=== PATIENT | male | born 1985 | race Caucasian/White ===

== ENCOUNTER 2018-12-06 19:23 | Inpatient (IN) | payer OTHER, SELFPAY ==
[2018-12-06 19:24] VITALS: BP 143/82; PULSE 70; RESP 18; TEMP 36.8; O2SAT 97; BMI 29.0
[2018-12-06 21:07] VITALS: BP 138/74; PULSE 50; RESP 14; O2SAT 98
[2018-12-06] MEDS: 0.9% Normal Saline 1,000 ML 999 ML IV ×2 (21:09→23:16)
[2018-12-06 23:24] LABS: Absolute Lymphocyte Count 2.28 X10^3/ul (0.83-4.51); Absolute Neutrophil Count 6.9 X10^3/uL (2.0-7.7); Basophil# 0.02 X10^3/uL; Basophil% 0.2 % (0-1); Eosinophil# 0.11 X10^3/uL; Eosinophils% 1.1 % (0-5); Hematocrit 42.6 % (40-54); Hemoglobin 15.1 g/dl (13.0-16.5); Lymphocyte # 2.28 X10^3/ul (4.0); Lymphocyte % 22.8 % (19-41); Mean Corp Hgb Conc 35.4 g/gl (32-36); Mean Corpuscular Hgb 31.1 pg (27.0-32.0); Mean Corpuscular Volume 87.8 fL (80-94); Mean Platelet Vol. 10.4 fl (6.2-12.0); Monocyte# 0.68 X10^3/uL; Monocyte% 6.8 % (0-10); POSITIVE COUNT NO; POSITIVE DIFFERENTIAL NO; POSITIVE MORPHOLOGY NO; Platelet Count 170 K/mm3 (150-450); RBC Distribution Width CV 12.2 % (11.6-14.6); RBC Distribution Width SD 39.1 fl (35.1-43.9); Red Blood Count 4.85 M/mm3 (4.6-6.2)
[2018-12-06 23:27] LABS: CPK Total, Creatine Kinase 36825 U/L (39-308)
[2018-12-06 23:36] LABS: Anion Gap 11 (5-15); BUN 12 mg/dL (7-18); BUN/Creat Ratio 14.4 RATIO (10-20); Calcium,Total 8.8 mg/dL (8.5-10.1); Chloride 98 mmol/L (98-107); Creatinine, Serum 0.83 mg/dL (0.70-1.30); EST Glomerular Filtration Rate 111 mL/min (>60); Est Glom Filt Rate - Afr Amer 135 mL/min (>60); Glucose 101 mg/dL (74-106); Potassium 3.7 mmol/L (3.5-5.1); Sodium Level 132 mmol/L (136-145)
--- NOTE | 2018-12-06 23:52 | HP.PCM_ITS ---
Problem List (1) Rhabdomyolysis Status: Acute History of Present Illness Date of Admission: 12/06/18 Chief Complaint: sore hamstring muscles The patient is a 33 year old M with a significant history of previous rhabdomyolysis who presented with soreness of his bilateral hamstring muscles on the same day of presentation. Patient had a workout a day before his symptoms started. He reports bilateral posterior thigh soreness. Because previously he had rhabdomyolysis and his symptoms appeared consistent with his previous rhabdomyolysis he began to drink so much water. Because his symptoms persisted after drinking so much water he came to emergency department. At the Emergency department patient was found to have severely elevated CPK. He was initially started on saline and then IV fluid was switched to bicarbonate after CPK results came back to be severely elevated. Past Medical History Medical History: Medical History (Last Reviewed 12/07/18 @ 07:27 by Santiago Tellez MD) Rhabdomyolysis M62.82 Allergies No Known Allergies Allergy (Verified 12/06/18 19:25) Home Medications: Ambulatory Orders Medication Instructions Recorded No Known/Unobtainable [No Known 10/30/16 Home Medications] Surgical History: no surgical history Lives: Spouse/ Significant Other Smoking Status: Never smoker Alcohol: Occasional Review of Systems Constitutional: Denies: Chills, Fever, Weight Change HEENT: Denies: Head Aches, Sinus Congestion, Sinus Drainage Cardiovascular: Denies: Chest Pain, Palpitations Respiratory: Denies: Cough, Shortness of breath at rest, Sputum production Gastrointestinal: Denies: Abdominal Pain, Nausea, Vomiting Genitourinary: Denies: Dysuria Musculoskeletal: Reports: Muscle pain. Denies: Joint Pain, Joint Tenderness Skin: Denies: Rash, Wounds Neurological: Denies: Numbness, Tingling, Focal weakness Psychiatric: Denies: Anxiety, Depression, Homicidal Ideations, Suicidal Ideations Hematologic/ Lymphatic: Denies: Easy Bruising, Easy Bleeding VTE Information - Inpt Only VTE Present on Admission: No VTE Mechan Device Prophylaxis: None VTE Pharm Prophylaxis ordered?: No Reason prophylaxis not ordered:: Treatment Not Indicated - Low risk - Physical Exam General: Alert, Oriented x3, Cooperative HEENT: Atraumatic, PERRLA, EOMI, Normocephalic Neck: Supple, No JVD, Negative Carotid Bruits Lungs: Clear to auscultation, Normal air movement Cardiovascular: Regular rate, No murmurs Abdomen: Bowel Sounds Present, Soft, Non Tender Extremities: No edema, Capillary Refill Less than 3 Seconds Skin: No rashes, No breakdown Musculoskeletal: No Tenderness to Palpation of Joints or Extremities Neurological: Cranial nerves II-XII grossly intact Psych/Mental Status: Normal Affect, Appropriate Vital Signs Temp Pulse Resp BP Pulse Ox 98.2 F 50 L 14 138/74 H 98 12/06/18 19:24 12/06/18 21:07 12/06/18 21:07 12/06/18 21:07 12/06/18 21:07 Oxygen Delivery Method Room Air Weight: 81.8 kg Body Mass Index (BMI) 29.0 Laboratory Tests Past 24 Hrs 12/06/18 12/06/18 12/06/18 21:01 21:01 21:01 WBC 10.0 RBC 4.85 Hgb 15.1 Hct 42.6 MCV 87.8 MCH 31.1 MCHC 35.4 RDW 12.2 RDW Differential 39.1 Plt Count 170 MPV 10.4 Immature Gran % (Auto) 0.100 Neut % (Auto) 69.0 Lymph % (Auto) 22.8 [place] % (Auto) 6.8 Eos % (Auto) 1.1 Baso % (Auto) 0.2 Absolute Neuts (auto) 6.9 Absolute Lymphs (auto) 2.28 Sodium 132 L Potassium 3.7 Chloride 98 Carbon Dioxide 23.0 Anion Gap 11 BUN 12 Creatinine 0.83 Estim Creat Clear Calc 112.10 Est GFR (MDRD) Af Amer 135 Est GFR (MDRD) Non-Af 111 BUN/Creatinine Ratio 14.4 Glucose 101 Calcium 8.8 Total Creatine Kinase 24356 H Assessment/Plan All Active Problems (Last Reviewed 12/07/18 @ 02:11 by Santiago Tellez MD) Rhabdomyolysis (Acute) The patient is a 33 year old M with a significant history of previous rhabdomyolysis who presented with soreness of his bilateral hamstring muscles after working out and found to have severe elevation of CPK consistent with acute rhabdomyolysis. Acute rhabdomyolysis Patient received normal saline at the emergency department and bicarbonate infusion was started. Since per literature there may not be any additional benefit from using bicarbonate will switch back to normal saline infusion after current bag of bicarbonate has been completed. If with persisted elevated CPK consider trying bicarbonate again. Repeat CPK in a.m. Tylenol PRN for pain. DVT prophylaxis low risk; not indicated Code Visit OBSV E&M: 95044 Initial observation care L3
--- NOTE | 2018-12-06 23:58 | ED.VISSUMM ---
- ER Visit Summary Date of Service: 12/06/18 Chief Complaint: Muscle soreness History of Present Illness: The patient is a 33 M who presents the emergency department at a concern for rhabdomyolysis. 2017 the patient was admitted in October with CPK levels greater than 100,000. He states that he works out quite frequently and he states that he remembers the discomfort from rhabdo quite well. States he had similar feelings in his hamstrings when he woke this morning after yesterday's work-up. States he does not feel as bad as he did in the past. When he woke this morning he immediately began to drink a lot of fluids. He states his urine is pretty much clear. However he continues to have the discomfort in his hamstrings so he came to the emergency department. Physical Examination: Afebrile vital signs stable Gen: Well-nourished well-developed Head: Normocephalic atraumatic Eyes: Perrl EOMI ENT: TMs clear no rhinorrhea moist mucous membranes Neck: Supple no lymphadenopathy no JVD nontender CVS: Regular rate rhythm no murmurs normal S1-S2 Respiratory: No distress clear to auscultation bilaterally chest nontender Abdomen: Soft nontender nondistended normal bowel sounds no masses Back: Nontender Extremity: Nontender no edema Skin: Normal color no rash Neuro: alert orientated ?3 CN II-XII intact normal strength sensation Psych: Normal affect normal mood Test Results: CBC and BMP are normal. Normal creatinine. Total body CK is 36,825. Emergency Department Course and Treatment: Patient was treated initially with 2 L of IV fluids. Once a CPK level came back we changed to bicarbonate drip. He has been consistently urinating large volume. Our plan is admission. Impression: 1. Acute rhabdomyolysis This note was generated with [employer] dictation software. It may contain incorrect words, spelling, and punctuation that were not noted in review of the chart prior to signing ED Disposition - Plan for ED Patient: Referrals: Alem Cornell NP-C [Primary Care Provider] -
[2018-12-07 00:53] VITALS: BP 130/78; PULSE 88; RESP 18; O2SAT 97
[2018-12-07 01:18] VITALS: BMI 28.8; BMI 29.1
[2018-12-07 01:30] VITALS: BP 132/77; PULSE 46; RESP 16; TEMP 36.6; O2SAT 99
[2018-12-07] MEDS: 0.9% Normal Saline 1,000 ML 150 ML IV (05:42)
[2018-12-07 07:16] LABS: Anion Gap 3 (5-15); BUN 8 mg/dL (7-18); BUN/Creat Ratio 10.5 RATIO (10-20); CPK Total, Creatine Kinase 32629 U/L (39-308); Calcium,Total 8.1 mg/dL (8.5-10.1); Chloride 105 mmol/L (98-107); Creatinine, Serum 0.76 mg/dL (0.70-1.30); EST Glomerular Filtration Rate 123 mL/min (>60); Est Glom Filt Rate - Afr Amer 149 mL/min (>60); Estimated Creatinine Clearance 122.42 ml/min; Glucose 160 mg/dL (74-106); Potassium 3.6 mmol/L (3.5-5.1); Sodium Level 139 mmol/L (136-145)
[2018-12-07 07:30] VITALS: BP 136/83; PULSE 44; RESP 16; TEMP 36.7; O2SAT 100
[2018-12-07 08:00] VITALS: PULSE 44
--- NOTE | 2018-12-07 11:31 | PCM.PROGNOTE ---
Subjective: The patient is a 33-year-old male with a past medical history of severe rhabdomyolysis after a hard work out who presented to the Ed at [facility] on 12/06/2018 complaining of severe pain in his hamstrings bilaterally. He last exercised on 12/05/2018 and he exercised for approximately 1 Half Hour Doing Hill sprints. He stated he took frequent breaks. He is well trained and exercises regularly. He relates that he is always sore after any work out and that this has been going on since he was a child. He had been drinking large amounts of water to prevent kidney failure. He denies any dark urine. He denies any FH of metabolic disorders. He has never been tested for a metabolic myopathy. All lab was personally reviewed. Heart rate is consistently in the 40s and blood pressure is stable. He is 97 to 100% saturated on room air. All lab was personally reviewed. CBC was unremarkable at presentation to the emergency department. Sodium has increased from 1 32-1 39 with hydration. The BUN is 8 with a creatinine of 0.76. Potassium is 3.6. AST is 782 and the ALT is 224. Alk phos and bilirubin are within normal limits. Magnesium is 2.2 and the phosphorus is currently pending. Calcium is low at 8.1 but when corrected for hypoalbuminemia is 8.9 and this is within normal limits. Total CK is 32,629, down from 36,825 at admission. - Physical Exam General: Alert, Oriented x3, Cooperative, No apparent distress HEENT: Atraumatic, PERRLA, EOMI, Normocephalic Oral: Moist Mucosa Neck: Supple, No JVD Lungs: Clear to auscultation, Normal air movement Cardiovascular: Regular Rhythm, Normal S1, Normal S2, No murmurs, Bradycardic - likely due to be a well trained athlete, No rub noted, No Gallop Abdomen: Bowel Sounds Present, Soft, Non Tender, Non-Distended Extremities: - - the hamstrings are sft BL with no suspicion of compartment S. Pain has improved somewhat Skin: No rashes, No breakdown Musculoskeletal: No Muscle Wasting Neurological: Cranial nerves II-XII grossly intact, Neuro grossly intact Psych/Mental Status: Normal Affect, Appropriate Vital Signs Temp Pulse Resp BP Pulse Ox 98.1 F 44 L 16 136/83 H 100 12/07/18 07:30 12/07/18 08:00 12/07/18 07:30 12/07/18 07:30 12/07/18 07:30 Oxygen Delivery Method Room Air Weight: 178 lb 5.663 oz Body Mass Index (BMI) 28.8 Intake and Output for Last 24 Hours 12/05/18 12/06/18 12/07/18 23:59 23:59 23:59 Intake Total 1251 / 1251 Balance 1251 / 1251 Laboratory Tests Past 24 Hrs 12/06/18 12/06/18 12/06/18 21:01 21:01 21:01 WBC 10.0 RBC 4.85 Hgb 15.1 Hct 42.6 MCV 87.8 MCH 31.1 MCHC 35.4 RDW 12.2 RDW Differential 39.1 Plt Count 170 MPV 10.4 Immature Gran % (Auto) 0.100 Neut % (Auto) 69.0 Lymph % (Auto) 22.8 [place] % (Auto) 6.8 Eos % (Auto) 1.1 Baso % (Auto) 0.2 Absolute Neuts (auto) 6.9 Absolute Lymphs (auto) 2.28 Sodium 132 L Potassium 3.7 Chloride 98 Carbon Dioxide 23.0 Anion Gap 11 BUN 12 Creatinine 0.83 Estim Creat Clear Calc 112.10 Est GFR (MDRD) Af Amer 135 Est GFR (MDRD) Non-Af 111 BUN/Creatinine Ratio 14.4 Glucose 101 Calcium 8.8 Total Creatine Kinase 87181 H 12/07/18 05:40 WBC RBC Hgb Hct MCV MCH MCHC RDW RDW Differential Plt Count MPV Immature Gran % (Auto) Neut % (Auto) Lymph % (Auto) [place] % (Auto) Eos % (Auto) Baso % (Auto) Absolute Neuts (auto) Absolute Lymphs (auto) Sodium 139 Potassium 3.6 Chloride 105 Carbon Dioxide 31.0 Anion Gap 3 L BUN 8 Creatinine 0.76 Estim Creat Clear Calc 122.42 Est GFR (MDRD) Af Amer 149 Est GFR (MDRD) Non-Af 123 BUN/Creatinine Ratio 10.5 Glucose 160 H Calcium 8.1 L Total Creatine Kinase 38561 H Medical Necessity - Tobacco Use Smoking Status: Never smoker Assessment/Plan All Active Problems (Last Reviewed 12/07/18 @ 07:27 by Santiago Tellez MD) Rhabdomyolysis (Acute) Impressions 1. severe rhabdomyolysis - has had in the past as well. I suspect he may have a metabolic myopthy and recommended to him that he should follow up with a specialist and be evaluated for this.......has been having muscle soreness with exercise since he was a child 2. no evidence of compartment S. Continue aggressive hydration Phos and MAg and K are all normal. Recheck the CK in the AM.....DC when the CK is less than 5,000 D/W the DC menu planner and she will attempt to find the name of a physician at [facility] who deals with metabolic myopathies and inborn errors of metabolism so that he can be evaluated Code Visit Inpatient E&M: 88470 Subs Hosp L2
[2018-12-07 12:02] LABS: AST(SGOT) 782 U/L (15-37); Alanine Aminotransfer ALT/SGPT 224 U/L (16-61); Alkaline Phosphatase 43 U/L (45-117); Bilirubin, Direct 0.15 mg/dL (0.00-0.30); Globulin 3.1 g/dL (2.2-4.2); Magnesium 2.2 mg/dL (1.6-2.6); Protein, Total 6.1 g/dL (6.4-8.2)
[2018-12-07 12:04] LABS: Phosphorus 3.3 mg/dL (2.5-4.9)
[2018-12-07 14:00] VITALS: BP 141/79; PULSE 69; RESP 16; TEMP 36.4; O2SAT 98
--- NOTE | 2018-12-07 14:00 | CASEMGMT ---
RN CM Face to Face with patient for initial transition planning/care coordination assessment. RN CM introduced self and role at [facility]. Patient lying in bed, alert and oriented. Patient willing to participate in assessment and is able to answer all questions appropriately. Care providers, pharmacy, and demographics verified. Chart reviewed and no discharge needs identified. Patient wishes to discharge home, denies need for home health at this time. Patient states he has no further needs or concerns at this time. CM to follow for discharge planning needs that may arise. Rebecca BOYDN, RN, CM
[2018-12-07] MEDS: 0.9% Normal Saline 1,000 ML 200 ML IV ×3 (14:05→23:46)
[2018-12-07 16:50] LABS: Amphetamine Urine VISTA NEGATIVE (<1000 ng/mL); Barbiturate Urine VISTA NEGATIVE (< 200 ng/mL); Benzodiazepine Urine VISTA NEGATIVE (< 200 ng/mL); Cocaine Urine VISTA NEGATIVE (< 300 ng/mL); Ecstacy Urine VISTA NEGATIVE (< 500 ng/mL); Methadone Urine VISTA NEGATIVE (< 300 ng/mL); PCP Urine VISTA NEGATIVE (< 25 ng/mL); THC Urine VISTA NEGATIVE (< 50 ng/mL); Vista UDS pH Range 7
[2018-12-07 18:06] LABS: Anion Gap 5 (5-15); BUN 14 mg/dL (7-18); BUN/Creat Ratio 14.6 RATIO (10-20); CPK Total, Creatine Kinase 30723 U/L (39-308); Calcium,Total 8.8 mg/dL (8.5-10.1); Chloride 107 mmol/L (98-107); Creatinine, Serum 0.96 mg/dL (0.70-1.30); EST Glomerular Filtration Rate 94 mL/min (>60); Est Glom Filt Rate - Afr Amer 114 mL/min (>60); Estimated Creatinine Clearance 96.92 ml/min; Glucose 81 mg/dL (74-106); Potassium 4.4 mmol/L (3.5-5.1); Sodium Level 143 mmol/L (136-145)
[2018-12-07 20:20] VITALS: BP 135/76; PULSE 57; RESP 16; TEMP 36.6; O2SAT 100
[2018-12-08 03:00] VITALS: BP 110/68; PULSE 47; RESP 16; TEMP 36.4; O2SAT 99
[2018-12-08 06:47] LABS: AST(SGOT) 728 U/L (15-37); Alanine Aminotransfer ALT/SGPT 286 U/L (16-61); Albumin, Serum 3.3 g/dL (3.2-5.0); Alkaline Phosphatase 48 U/L (45-117); Anion Gap 7 (5-15); BUN 19 mg/dL (7-18); BUN/Creat Ratio 21.8 RATIO (10-20); Calcium,Total 8.6 mg/dL (8.5-10.1); Chloride 109 mmol/L (98-107); Creatinine, Serum 0.87 mg/dL (0.70-1.30); EST Glomerular Filtration Rate 106 mL/min (>60); Est Glom Filt Rate - Afr Amer 128 mL/min (>60); Estimated Creatinine Clearance 106.94 ml/min; Globulin 3.4 g/dL (2.2-4.2); Glucose 97 mg/dL (74-106); Magnesium 2.1 mg/dL (1.6-2.6); Phosphorus 4.3 mg/dL (2.5-4.9); Protein, Total 6.7 g/dL (6.4-8.2); Sodium Level 141 mmol/L (136-145)
[2018-12-08 10:20] VITALS: BP 121/78; PULSE 46; RESP 16; TEMP 36.6; O2SAT 100
--- NOTE | 2018-12-08 11:39 | CASEMGMT ---
MANUELITO BOJORQUEZ NOTE: MANUELITO BOJORQUEZ received request from hospitalist to setup a patient referral for specialist regarding metabolic myopathy. MANUELITO BOJORQUEZ sent Refer a Patient paper work to [facility]. MANUELITO BOJORQUEZ updated patient regarding referral request. MANUELITO BOJORQUEZ will continue to follow this patient and plan for a safe discharge.
[2018-12-08 15:05] VITALS: BP 117/68; PULSE 44; RESP 16; TEMP 37; O2SAT 100
[2018-12-08 18:45] LABS: CPK Total, Creatine Kinase 33895 U/L (39-308)
--- NOTE | 2018-12-08 20:35 | PN_ITS ---
Subjective: Patient was seen and examined today, he is got no complaints of muscle pain, his CPK is highly elevated, I change his IV fluid today to D5 with sodium bicarb, I repeated his CPK late this afternoon and it was still highly elevated. I made the determination to keep him and continue IV fluids a lower rate. I did talk to his nurse practitioner who sees him and his PCPs office, she states that the last time his CPK was elevated and he was hospitalized, she gave him instructions not to exercise for a time. And then repeated the CPK and it went back to normal. - Physical Exam General: Alert, Oriented x3, Cooperative, No apparent distress, Well developed, Well nourished HEENT: Atraumatic, PERRLA, EOMI, Normocephalic Oral: Moist Mucosa Neck: Supple, Trachea Midline, Thyroid Normal Size and Texture Lungs: Clear to auscultation, Normal air movement, No rhonchi, No wheeze, No rales Cardiovascular: Regular rate, Regular Rhythm, Normal S1, Normal S2, No murmurs, PMI Normal, No rub noted Abdomen: Bowel Sounds Present, Soft, Non Tender, Non-Distended Extremities: No clubbing, No cyanosis, No edema, Capillary Refill Less than 3 S econds Skin: No rashes, No breakdown Musculoskeletal: No Tenderness to Palpation of Joints or Extremities Neurological: Cranial nerves II-XII grossly intact, Neuro grossly intact, Motor Exam 5/5 strength throughout, Sensory exam intact to light touch and pain, Coordination normal Psych/Mental Status: Normal Affect, Appropriate, Alert and oriented to time, place, person, mood and affect Vital Signs Temp Pulse Resp BP Pulse Ox 98.6 F 44 L 16 117/68 100 12/08/18 15:05 12/08/18 15:05 12/08/18 15:05 12/08/18 15:05 12/08/18 15:05 Oxygen Delivery Method Room Air Weight: 80.9 kg Body Mass Index (BMI) 28.8 Intake and Output for Last 24 Hours 12/06/18 12/07/18 12/08/18 23:59 23:59 23:59 Intake Total 7740 / 7740 5191 / 5191 Balance 7740 / 7740 5191 / 5191 Laboratory Tests Past 24 Hrs 12/08/18 12/08/18 04:56 17:25 Sodium 141 Potassium 4.0 Chloride 109 H Carbon Dioxide 25.0 Anion Gap 7 BUN 19 H Creatinine 0.87 Estim Creat Clear Calc 106.94 Est GFR (MDRD) Af Amer 128 Est GFR (MDRD) Non-Af 106 BUN/Creatinine Ratio 21.8 H Glucose 97 Calcium 8.6 Phosphorus 4.3 Magnesium 2.1 Total Bilirubin 0.20 AST 728 H ALT 286 H Alkaline Phosphatase 48 Total Creatine Kinase 99726 H 89932 H Total Protein 6.7 Albumin 3.3 Globulin 3.4 Albumin/Globulin Ratio 1.0 Medical Necessity - Tobacco Use Smoking Status: Never smoker Assessment/Plan All Active Problems (Last Reviewed 12/07/18 @ 07:27 by Santiago Tellez MD) Rhabdomyolysis (Acute) #1 rhabdomyolysis-again I will continue IV fluids and recheck the patient's CPK tomorrow, I feel the patient's ALT and AST are elevated due to the rhabdomyolysis not due to a liver problem. Again, the patient may need to see a notch machine operator regarding his CPK elevations, I have relayed this to his nurse practitioner by phone today who he will follow-up with as an outpatient. Code Visit Inpatient E&M: 21938 Subs Hosp L2
[2018-12-08 21:30] VITALS: BP 136/83; PULSE 43; RESP 16; TEMP 36.8; O2SAT 100
[2018-12-09 04:03] VITALS: BP 99/51; PULSE 44; RESP 16; TEMP 36.7; O2SAT 99
[2018-12-09 05:58] LABS: AST(SGOT) 585 U/L (15-37); Alanine Aminotransfer ALT/SGPT 287 U/L (16-61); Albumin, Serum 3.3 g/dL (3.2-5.0); Alkaline Phosphatase 58 U/L (45-117); Anion Gap 5 (5-15); BUN 21 mg/dL (7-18); BUN/Creat Ratio 24.9 RATIO (10-20); CPK Total, Creatine Kinase 20522 U/L (39-308); Calcium,Total 8.9 mg/dL (8.5-10.1); Chloride 102 mmol/L (98-107); Creatinine, Serum 0.84 mg/dL (0.70-1.30); EST Glomerular Filtration Rate 109 mL/min (>60); Est Glom Filt Rate - Afr Amer 132 mL/min (>60); Estimated Creatinine Clearance 110.76 ml/min; Globulin 3.1 g/dL (2.2-4.2); Glucose 109 mg/dL (74-106); Potassium 3.4 mmol/L (3.5-5.1); Protein, Total 6.4 g/dL (6.4-8.2); Sodium Level 141 mmol/L (136-145)
--- NOTE | 2018-12-09 09:32 | DCINST_ITS ---
You will use the following diet at home:: No restrictions Your food should be the consistency of: Regular Your liquids should be the consistency of: Regular/Thin Discharge Activity: Return to Normal Activity Weight Bearing Status: Full weight bearing Additional Instructions: no vigorous exercising, get lab done Thursday morning Allergies/Adverse Reactions: Allergies No Known Allergies Allergy (Verified 12/06/18 19:25) Medications to take at Discharge No Known/Unobtainable [No Known Home Medications] 10/30/16 Primary Care Physician: Alem Cornell NP-C [Primary Care Provider] - Please follow up with your Primary Care Physician in: as directed Test Results: Test results from this visit will be discussed in further detail at your follow- up appointment, if applicable.
[2018-12-09 11:00] VITALS: BP 150/86; PULSE 60; RESP 18; TEMP 36.7; O2SAT 100
--- NOTE | 2018-12-12 08:56 | PCM.DC.SUM ---
Discharge Date and Diagnosis Date of Admission: 12/06/18 Date of Discharge: 12/09/18 - Primary Discharge Diagnosis #1 rhabdomyolysis Hospital Course and Treatment Operations: None Procedures: None Summary of Care Provided: The patient is a 33 year old M who was seen in the emergency room with a chief complaint of muscle soreness after working out. And been admitted previously in 2017 for rhabdomyolysis-there were no complications during his admission at that time. Work-up in the emergency room showed his CPK to be elevated at 36,825, CBC and BMP were normal. Patient was given IV fluids and admitted to [place] [address] for rhabdomyolysis, patient's CPKs trended downward slowly, patient had no evidence of kidney injury or kidney impairment during his hospitalization. My conversations with the patient's PCP prior to his discharge and recommended that he follow-up with a financial advisor concerning his recurrent rhabdomyolysis. On 12/09/2018, patient was seen and examined: On examination he appeared in good health and spirits. Vital signs as documented. Skin warm and dry and without overt rashes. Neck without JVD. Lungs clear. Heart exam notable for regular rhythm, normal sounds and absence of murmurs, rubs or gallops. Abdomen unremarkable and without evidence of organomegaly, masses, or abdominal aortic enlargement. Extremities nonedematous. Neuro: Cranial nerves II through XII are grossly intact, no focal motor deficits were noted, sensation to light touch and pinprick intact. Psych: Patient is alert and oriented x3, he does not appear anxious or depressed On 12/09/2018, patient was seen and examined felt to be in stable condition for discharge home - Physical Exam Vital Signs Temp Pulse Resp BP Pulse Ox 98.0 F 60 18 150/86 H 100 12/09/18 11:00 12/09/18 11:00 12/09/18 11:00 12/09/18 11:00 12/09/18 11:00 Oxygen Delivery Method Room Air Weight: 80.9 kg Body Mass Index (BMI) 28.8 Discharge Activity: Return to Normal Activity Weight Bearing Status: Full weight bearing Home Medications: Medications to take at Discharge No Known/Unobtainable [No Known Home Medications] 10/30/16 Primary Care Physician: Alem Cornell, HODAN-C [Primary Care Provider] - Please follow up with your Primary Care Physician in: as directed Disposition: Home Minutes spent on discharge:: 32 Patient Condition:: Stable Medical Necessity - Tobacco Use Smoking Status: Never smoker Meaningful Use Info Meaningful Use Diagnoses (Choose all that apply): None applicable Code Visit Inpatient E&M: 71296 Disch Hosp
== END 2018-12-09 11:14 | disposition home or self-care (01) | DRG 558 ==
LOC: ED 20:30 → MS3 12-07 01:28
PROVIDERS: Internal Medicine; Admitting Provider Hospitalist; Emergency Provider Emergency Medicine; Family Provider Nurse Practitioner; PCP Nurse Practitioner; Referring Provider Hospitalist; Visit Provider Internal Medicine
DX: M62.82 Rhabdomyolysis (principal)
CPT/HCPCS: 36415; 80048; 80053; 80076; 80307; 82550; 83036; 83735; 84100; 85025; 99283; J7030

== ENCOUNTER → 2018-12-06 | Outpatient (CLI) | payer OTHER, SELFPAY | END | disposition home or self-care (01) | PROVIDERS: Referring Provider Nurse Practitioner; Visit Provider Nurse Practitioner | DX: Z87.39 Personal history of other diseases of the musculoskeletal system and connective tissue (principal) | CPT/HCPCS: 36415; 82550; 82552 ==

== ENCOUNTER → 2018-12-14 | Outpatient (CLI) | payer OTHER, SELFPAY ==
[2018-12-07 01:18] VITALS: BMI 28.8
[2018-12-14 12:23] LABS: AST(SGOT) 48 U/L (15-37); Alanine Aminotransfer ALT/SGPT 152 U/L (16-61); Albumin, Serum 4.1 g/dL (3.2-5.0); Alkaline Phosphatase 59 U/L (45-117); Anion Gap 6 (5-15); BUN 16 mg/dL (7-18); Bilirubin, Direct 0.17 mg/dL (0.00-0.30); CPK Total, Creatine Kinase 438 U/L (39-308); Calcium,Total 9.5 mg/dL (8.5-10.1); Chloride 105 mmol/L (98-107); Creatinine, Serum 0.94 mg/dL (0.70-1.30); EST Glomerular Filtration Rate 96 mL/min (>60); Est Glom Filt Rate - Afr Amer 117 mL/min (>60); Globulin 3.7 g/dL (2.2-4.2); Glucose 103 mg/dL (74-106); Potassium 4.4 mmol/L (3.5-5.1); Protein, Total 7.8 g/dL (6.4-8.2); Sodium Level 140 mmol/L (136-145)
== END | disposition home or self-care (01) ==
LOC: LAB 11:15
PROVIDERS: Family Provider Nurse Practitioner; PCP Nurse Practitioner; Referring Provider Internal Medicine; Visit Provider Internal Medicine
DX: M62.82 Rhabdomyolysis (principal); E87.6 Hypokalemia; R74.8 Abnormal levels of other serum enzymes
CPT/HCPCS: 36415; 80048; 80076; 82550

== ENCOUNTER → 2021-05-15 11:55 | Outpatient (CLI) | payer OTHER, SELFPAY ==
--- NOTE | 2021-05-15 11:59 | RAD_ITS ---
STUDY: X-RAY - LEFT FOOT CLINICAL: Left foot pain, left foot injury in the cuboid area 3 weeks ago. TECHNIQUE: 3 view(s) of the foot. COMPARISON: None. FINDINGS: Normal talus, calcaneus, and tarsal bones. Normal visualized subtalar, talonavicular, calcaneocuboid, tarsal and tarsometatarsal articulations. There is a suspected subtle nondisplaced fracture of the fifth metatarsal base. Normal metatarsophalangeal joint of the great toe. Normal tibial and fibular sesamoid bones. Normal interphalangeal joint of the great toe. Normal phalanges of the great toe. Normal second through fifth metatarsophalangeal joints. Normal interphalangeal joints and phalanges of the lesser toes. The soft tissue structures are unremarkable. RAD/Foot min 3 Views IMPRESSION: Suspected subtle nondisplaced fracture of the fifth metatarsal base. Electronically Signed: Marcial Medrano MD at 14:21 EST Tel , Service support ,
== END ==
PROVIDERS: PCP Nurse Practitioner; Referring Provider Podiatrist; Visit Provider Podiatrist
DX: M79.672 Pain in left foot (principal); S92.212A Displaced fracture of cuboid bone of left foot, initial encounter for closed fracture
CPT/HCPCS: 73630

== ENCOUNTER 2021-06-26 12:56 | Outpatient (CLI) | payer OTHER, SELFPAY ==
--- NOTE | 2021-06-26 13:01 | RAD_ITS ---
EXAM: XR LEFT FOOT COMPLETE, 3 OR MORE VIEWS CLINICAL INDICATION: FOOT PAIN TECHNIQUE: Frontal, lateral and oblique views of the left foot. This report was created using [employer] report generation technology. COMPARISON: 05.15.21 FINDINGS: BONES/JOINTS: Fracture of the base of the 5th metacarpal bone. Preservation of the joint space. No sclerotic or destructive changes observed. SOFT TISSUES: Unremarkable. No soft tissue swelling or gas. No radiopaque foreign body. RAD/Foot min 3 Views IMPRESSION: Fracture of the base of the 5th metacarpal bone. Electronically Signed: Klever Alfaro MD at 15:58 EST ,
== END 2021-06-26 23:59 | disposition short-term general hospital (02) ==
LOC: RAD 12:58
PROVIDERS: PCP Nurse Practitioner; Referring Provider Podiatrist; Visit Provider Podiatrist
DX: S92.355D Nondisplaced fracture of fifth metatarsal bone, left foot, subsequent encounter for fracture with routine healing (principal); M79.672 Pain in left foot
CPT/HCPCS: 73630

== ENCOUNTER 2021-07-31 13:07 | Outpatient (CLI) | payer OTHER, SELFPAY ==
--- NOTE | 2021-07-31 13:10 | RAD_ITS ---
EXAM: XR LEFT FOOT COMPLETE, 3 OR MORE VIEWS : 1985 CLINICAL INDICATION: FOOT PAIN / [id number] fx TECHNIQUE: Frontal, lateral and oblique views of the left foot. This report was created using .[employer] report generation technology. COMPARISON: 06/26/21 FINDINGS: BONES/JOINTS: No significant interval healing reaction is appreciated involving the fracture at the base of the fifth metatarsal. Preservation of the joint space. No sclerotic or destructive changes observed. SOFT TISSUES: Unremarkable. No soft tissue swelling or gas. No radiopaque foreign body. RAD/Foot min 3 Views IMPRESSION: No significant interval healing reaction is appreciated involving the fracture at the base of the fifth metatarsal. at 0521 Reported and signed by: Klever Garsia MD Electronically Signed: Klever Garsia MD at 5:20 EST ,
== END 2021-07-31 23:59 | disposition home or self-care (01) ==
LOC: RAD 13:09
PROVIDERS: PCP Nurse Practitioner; Referring Provider Podiatrist; Visit Provider Podiatrist
DX: M79.672 Pain in left foot (principal); S92.355D Nondisplaced fracture of fifth metatarsal bone, left foot, subsequent encounter for fracture with routine healing
CPT/HCPCS: 73630

== ENCOUNTER 2021-09-10 13:59 | Outpatient (CLI) | payer OTHER, SELFPAY ==
--- NOTE | 2021-09-10 14:05 | RAD_ITS ---
STUDY: X-RAY - LEFT FOOT CLINICAL: Male, 36 years old. 5TH METATARSAL FX, FOOT PAIN TECHNIQUE: 3 view(s) of the foot. COMPARISON: Left foot x-rays 07/31/2021. FINDINGS: BONES: Fracture of the base of the fifth metatarsal again demonstrated. No evidence of healing. No new fracture. JOINTS: No dislocation. SOFT TISSUES: Unremarkable. RAD/Foot min 3 Views IMPRESSION: No significant change of the fracture at the base of the fifth metatarsal. Electronically Signed: Crystal Maxwell MD at 4:52 EDT ,
== END 2021-09-10 23:59 | disposition home or self-care (01) ==
LOC: RAD 14:01
PROVIDERS: PCP Nurse Practitioner; Referring Provider Podiatrist; Visit Provider Podiatrist
DX: S92.355D Nondisplaced fracture of fifth metatarsal bone, left foot, subsequent encounter for fracture with routine healing (principal); M79.672 Pain in left foot
CPT/HCPCS: 73630

== ENCOUNTER → 2021-09-27 | Outpatient (CLI) | payer OTHER, SELFPAY ==
--- NOTE | 2021-09-27 08:21 | CT_ITS ---
STUDY: CT LEFT FOOT REASON FOR EXAM: Nondisplaced fifth metatarsal fracture last April, evaluate healing. TECHNIQUE: Thin section transaxial imaging of the foot was obtained, with sagittal and coronal reconstructed images. Individualized dose optimization techniques were used for this CT. COMPARISON: Radiographs 06/26/2021. FINDINGS: Normal talus, calcaneus, and tarsal bones. Normal visualized tibiotalar, subtalar, talonavicular, calcaneocuboid, tarsal and tarsometatarsal articulations. There is a nondisplaced fracture of the fifth metatarsal base with osseous bridging of approximately 95% (sagittal reconstructions 28-30; coronal reconstructions 54-58). Normal metatarsophalangeal joint of the great toe. Normal tibial and fibular sesamoid bones. Normal interphalangeal joint of the great toe. Normal phalanges of the great toe. Normal second through fifth metatarsophalangeal joints. Normal interphalangeal joints and phalanges of the lesser toes. The soft tissue structures are unremarkable. CT/Extremity Lower without Contra IMPRESSION: Nondisplaced fifth metatarsal base fracture with osseous bridging of approximately 95%. Electronically Signed: Marcial Medrano MD at 14:47 EDT ,
== END | disposition home or self-care (01) ==
LOC: CT 08:15
PROVIDERS: PCP Nurse Practitioner; Referring Provider Physician Assistant Surgical; Visit Provider Physician Assistant Surgical
DX: S92.355A Nondisplaced fracture of fifth metatarsal bone, left foot, initial encounter for closed fracture (principal)
CPT/HCPCS: 73700

== ENCOUNTER 2022-12-21 14:50 | Emergency (ER) | payer OTHER, SELFPAY ==
[2022-12-21 14:52] VITALS: BP 188/81; PULSE 94; RESP 18; TEMP 36.4; O2SAT 99; BMI 30.5
--- NOTE | 2022-12-21 15:36 | EKG12_ITS ---
Test Reason : DIZINESS Blood Pressure : / mmHG Vent. Rate : 074 BPM Atrial Rate : 074 BPM P-R Int : 158 ms QRS Dur : 086 ms QT Int : 386 ms P-R-T Axes : 026 067 017 degrees QTc Int : 428 ms Normal sinus rhythm Normal ECG Confirmed by GAVI MARSHALL, PRABHJOT ([id number]), supervising editor news reel ARLEEN RODRIGUEZ ([id number]) on 12/25/2022 8:41:38 AM Referred By: Confirmed By:DIXON GATICA MD
--- NOTE | 2022-12-21 15:37 | EDS_ITS ---
HPI History of Present Illness Chief Complaint: Dizziness Informant: patient Onset/Context/Timing Onset: Today Context: Sudden Onset Timing: Intermittent Quality: Lightheaded, weak Location: Generalized Worsened by: Nothing in Relieved by: Deep breathing Narrative Narrative: Patient presents with dizziness that began today. Patient states it began rather suddenly. Patient states he felt lightheaded and weak. Patient states he got better after deep breathing. Patient states he felt like his heart was racing. Patient states nothing makes it worse. Patient denies any symptoms at the present time. Patient states he felt like he was going to pass out but did not actually pass out. Patient denies any chest pain. Patient denies any shortness of breath. Patient denies any nausea or vomiting. Patient denies any fevers or chills. Patient denies any recent illness. [facility] Medical History Family history of skin cancer Laryngitis Mass of head Rhabdomyolysis Home Medications No Known/Unobtainable [No Known Home Medications] 10/30/16 [History Last Taken Unknown] Allergy/AdvReac Type Severity Reaction Status Date / Time No Known Allergies Allergy Verified 12/21/22 14:52 Family History Other Cancer High cholesterol Hypertension Surgical History no surgical history no surgical history Social History Smoking Status: Never smoker alcohol intake: never substance use type: does not use ROS ROS ED Constitutional Constitutional ED: Denies chills or fever(s) Eyes Eyes: Denies blurry vision or change in vision ENT ENT ED: Denies rhinorrhea or sore throat Cardiovascular Cardiovascular: Reports palpitations and racing heartbeat; Denies chest pain Respiratory/Chest Respiratory/Chest: Denies cough or dyspnea Gastrointestinal Gastrointestinal: Denies nausea or vomiting Genitourinary Genitourinary ED: Denies dysuria or hematuria Musculoskeletal Musculoskeletal: Denies back pain or neck pain Integumentary Denies abscess or rash Neurologic Neurologic: Denies headache(s) or weakness Allergic/Immunologic Allergic/Immunologic ED: Denies mouth swelling or urticaria EXAM Physical Exam Const Vital Signs: 12/21/22 14:52 12/21/22 16:15 12/21/22 16:16 Temperature 97.6 F L Temperature Source Temporal Pulse Rate 94 Pulse Rate [Lying] 75 Pulse Rate [Sitting (for 1 minute prior to obtaining)] 75 Pulse Rate [Standing (for 1 minute prior to obtaining)] 68 Respiratory Rate 18 Respiratory Pattern Normal Blood Pressure 188/81 H Blood Pressure [Lying] 149/74 H Blood Pressure [Sitting (for 1 minute prior to obtaining)] 154/87 H Blood Pressure [Standing (for 1 minute prior to obtaining)] 156/90 H Blood Pressure Mean 116 Blood Pressure Mean [Lying] 99 Blood Pressure Mean [Sitting (for 1 minute prior to obtaining)] 109 Blood Pressure Mean [Standing (for 1 minute prior to obtaining)] 112 Pulse Ox 99 Oxygen Delivery Method Room Air 12/21/22 18:00 Temperature Temperature Source Pulse Rate 69 Pulse Rate [Lying] Pulse Rate [Sitting (for 1 minute prior to obtaining)] Pulse Rate [Standing (for 1 minute prior to obtaining)] Respiratory Rate 15 Respiratory Pattern Blood Pressure 159/85 H Blood Pressure [Lying] Blood Pressure [Sitting (for 1 minute prior to obtaining)] Blood Pressure [Standing (for 1 minute prior to obtaining)] Blood Pressure Mean 109 Blood Pressure Mean [Lying] Blood Pressure Mean [Sitting (for 1 minute prior to obtaining)] Blood Pressure Mean [Standing (for 1 minute prior to obtaining)] Pulse Ox 100 Oxygen Delivery Method Room Air Positive well nourished and well developed General Appearance ED: well developed and NAD HEENT Reports moist mucous membranes Neck supple and no JVD Resp normal respiratory effort and clear to auscultation bilaterally Cardio regular rate and regular rhythm Heart Sounds: murmur systolic II/ crescendo-decrescendo holo left sternal border GI normal to inspection, nondistended, normoactive bowel sounds and non-tender Palpation: soft Extremity normal to inspection General Extremety ED: Negative for edema or tenderness General Extremity: Negative for edema Neuro oriented x3, CN's II-XII intact bilaterally and no sensory deficits noted Sensorium / Orientation: alert Motor Exam: strength 5/5 throughout Psych mental status grossly normal Skin no rashes or lesions noted MDM MDM MDM Narrative Medical decision making narrative: Differential diagnosis includes cardiac dysrhythmia, cardiac ischemia, near syncope, pneumonia, pneumothorax, pulmonary embolism, electrolyte abnormality, and anemia. EKG will be obtained to assess for cardiac dysrhythmia and cardiac ischemia. Chest x-ray will be obtained to assess for pneumonia and pneumothorax. CBC will be obtained to assess for anemia and leukocytosis. Basic metabolic profile will be obtained to assess for electrolyte abnormality and renal function. High-sensitivity troponin will be obtained to assess for cardiac ischemia. 2-hour repeat high-sensitivity troponin will be obtained to assess for ongoing cardiac ischemia. D-dimer will be obtained to assess for pulmonary embolism. PT with INR and PTT will be obtained to assess for coagulopathy. Lab Data Attestation: I reviewed the patient's lab results. Lab results narrative: CBC was reviewed. Platelets were low at 106. The remainder was within normal limits. PT with INR and PTT were reviewed and were within normal limits. D- dimer was reviewed and was less than 0.27. Basic metabolic profile was reviewed. BUN was slightly elevated at 19. The remainder was essentially within normal limits. High-sensitivity troponin was reviewed and was normal at 6. 2-hour repeat high-sensitivity troponin was reviewed and was normal at 7. Labs: Laboratory Results - last 24 hr 12/21/22 12/21/22 16:00 18:29 WBC 8.0 RBC 4.97 Hgb 15.3 Hct 43.7 MCV 87.9 MCH 30.8 MCHC 35.0 RDW Std Deviation 38.0 RDW Coeff of Ilene 11.8 Plt Count 106 L MPV 11.1 Immature Gran % (Auto) 0.400 Neut % (Auto) 66.5 Lymph % (Auto) 24.0 Winn % (Auto) 7.4 Eos % (Auto) 1.3 Baso % (Auto) 0.4 Absolute Neuts (auto) 5.3 Absolute Lymphs (auto) 1.91 Nucleated RBC % 0 Differential Comment SCANNED PT 13.0 INR 1.0 APTT 24.0 L D-Dimer Quant (PE/DVT) < 0.27 L Sodium 135 L Potassium 3.8 Chloride 102 Carbon Dioxide 28.0 Anion Gap 5 BUN 19 H Creatinine 1.03 Estim Creat Clear Calc 90.02 Est GFR (MDRD) Af Amer 103 Est GFR (MDRD) Non-Af 85 BUN/Creatinine Ratio 18.4 Glucose 112 H Calcium 9.0 Troponin I High Sens 6 7 Radiography Chest X-Ray - ED: 2 View, Read by ED Physician, Read by Radiologist and No Acute Disease Diagnostic Testing: Clinical Impression(s) from Imaging Studies Chest X-Ray 12/21/22 16:05 IMPRESSION: No radiographic evidence of acute cardiopulmonary disease. Electronically Signed: Aniya Grimm MD at 16:17 EDT , PA and lateral chest x-ray was obtained. There are 2 views. On my independent interpretation, lung briones are clear. There is normal cardiac silhouette. Bony thorax is normal. There is no acute process noted. Radiologist also interpreted the x-ray and agrees. EKG Initial EKG: Attestation: I personally reviewed and interpreted this EKG as follows: Interpretation: Sinus Rhythm (74) and No Acute Injury Pattern Comments: EKG was obtained. On my independent interpretation, it showed a normal sinus rhythm with a rate of 74. IA interval, QRS interval, and QTc intervals were all normal. [place] was normal. There are no acute ST or T wave changes. Prior EKG tracings: not available for review Prior: No Prior Treatment and Re-Evaluation :: Orthostatic vital signs were obtained and were within normal limits. Patient is feeling better on reevaluation. Patient was advised of his findings. Patient was instructed to follow-up with his primary care physician in 5 to 7 days for further evaluation. Patient understood and was agreeable with the plan. All questions were answered. Discharge Plan Triage Chief Complaint: Dizziness ED Provider: Andre Ibarra Dx/Rx/DC Orders Clinical Impression: Dizziness, Near syncope Instructions: ED Dizziness, Uncertain Cause, ED Near-Fainting, Uncertain Cause Prescriptions: No Action No Known Home Medications Primary Care Provider: Care Physician,No Primary Referrals: NOT,DEFINED [Non-Staff] - 5-7 Days Disposition Disposition: Home, Self Care
--- NOTE | 2022-12-21 16:05 | RAD_ITS ---
INDICATION: Palpitations EXAMINATION/TECHNIQUE: X-RAY - XR Chest 2 Views COMPARISON: No relevant prior comparison study available FINDINGS: LINES/DEVICES: None. LUNGS: No consolidation, edema or effusion. No pneumothorax. MEDIASTINUM AND CARDIOVASCULAR STRUCTURES: Cardiac silhouette not enlarged. Central airways and mediastinal contour are unremarkable. BONES AND SOFT TISSUES: Unremarkable. RAD/Chest PA and Lateral IMPRESSION: No radiographic evidence of acute cardiopulmonary disease. Electronically Signed: Aniya Grimm MD at 16:17 EDT ,
[2022-12-21 16:09] LABS: Absolute Lymphocyte Count 1.91 X10^3/uL (0.83-4.51); Absolute Neutrophil Count 5.3 X10^3/uL (2.0-7.7); Basophil# 0.03 X10^3/uL; Basophil% 0.4 % (0-1); Eosinophils% 1.3 % (0-5); Hematocrit 43.7 % (40-54); Hemoglobin 15.3 g/dL (13.0-16.5); Lymphocyte # 1.91 X10^3/ul (0.83-4.51); Mean Corpuscular Hgb 30.8 pg (27.0-32.0); Mean Corpuscular Volume 87.9 fL (80-94); Mean Platelet Vol. 11.1 fl (6.2-12.0); Monocyte# 0.59 X10^3/uL; Monocyte% 7.4 % (0-10); NRBC Flagged by Analyzer 0 % (0-5); Neutrophil # 5.31 X10^3/uL (2.7-7.7); Neutrophil % 66.5 % (47-70); POSITIVE COUNT YES; Platelet Count 106 K/mm3 (150-450); RBC Distribution Width CV 11.8 % (11.6-14.6); Red Blood Count 4.97 M/mm3 (4.6-6.2)
[2022-12-21 16:16] VITALS: BP 149/74; BP 154/87; BP 156/90; PULSE 68; PULSE 75
[2022-12-21 16:26] LABS: Anion Gap 5 (5-15); BUN 19 mg/dL (7-18); BUN/Creat Ratio 18.4 RATIO (10-20); Chloride 102 mmol/L (98-107); Creatinine, Serum 1.03 mg/dL (0.70-1.30); EST Glomerular Filtration Rate 85 mL/min (>60); Est Glom Filt Rate - Afr Amer 103 mL/min (>60); Estimated Creatinine Clearance 90.02 ml/min; Glucose 112 mg/dL (74-106); Potassium 3.8 mmol/L (3.5-5.1); Sodium Level 135 mmol/L (136-145); Troponin-I HS (w/2H Reflex) 6 pg/mL (3.0-78.0)
[2022-12-21 16:27] LABS: Differential Indicated SCAN CRITERIA MET
[2022-12-21 16:47] LABS: D-Dimer Quantitative (DVT/PE) < 0.27 FEU/ug/m (0.27-0.49)
[2022-12-21 16:50] LABS: Differential Comment SCANNED
[2022-12-21 18:00] VITALS: BP 159/85; PULSE 69; RESP 15; O2SAT 100
[2022-12-21 18:04] LABS: Reflex Troponin-HS? (from REC) Y
[2022-12-21 18:55] LABS: Troponin-I HS 7 pg/mL (3.0-78.0)
[2022-12-21 19:23] VITALS: BP 151/85; PULSE 70; RESP 16; O2SAT 100
== END 2022-12-21 19:33 | disposition home or self-care (01) ==
PROVIDERS: Emergency Provider Emergency Medicine; Visit Provider Emergency Medicine
DX: R55 Syncope and collapse (principal); R42 Dizziness and giddiness
CPT/HCPCS: 71046; 80048; 84484; 85025; 85379; 85610; 85730; 93005; 99284; A4216

== ENCOUNTER → 2023-01-29 | Outpatient (CLI) | payer OTHER, SELFPAY ==
[2023-01-29 13:08] LABS: AST(SGOT) 18 U/L (15-37); Alanine Aminotransfer ALT/SGPT 40 U/L (16-61); Albumin, Serum 4.2 g/dL (3.2-5.0); Alkaline Phosphatase 63 U/L (45-117); Anion Gap 2 (5-15); BUN 14 mg/dL (7-18); BUN/Creat Ratio 14.9 RATIO (10-20); Calcium,Total 9.1 mg/dL (8.5-10.1); Chloride 107 mmol/L (98-107); Cholesterol 322 mg/dL (200); Creatinine, Serum 0.94 mg/dL (0.70-1.30); EST Glomerular Filtration Rate 95 mL/min (>60); Est Glom Filt Rate - Afr Amer 115 mL/min (>60); Globulin 4.1 g/dL (2.2-4.2); Glucose 101 mg/dL (74-106); High Density Lipoprotein 54 mg/dL; Protein, Total 8.3 g/dL (6.4-8.2); Sodium Level 138 mmol/L (136-145); Thyroid Stim Hormone (TSH) 2.51 uIU/mL (0.358-3.74); Triglycerides 76 mg/dL; Very Low Density Lipoprotein 15 mg/dL (5-40)
== END | disposition home or self-care (01) ==
LOC: LAB 12:18
PROVIDERS: PCP Nurse Practitioner Family; Referring Provider Internal Medicine Cardiovascular Disease; Visit Provider Internal Medicine Cardiovascular Disease
DX: R00.2 Palpitations (principal); R55 Syncope and collapse; R03.0 Elevated blood-pressure reading, without diagnosis of hypertension; F41.9 Anxiety disorder, unspecified; F43.9 Reaction to severe stress, unspecified
CPT/HCPCS: 36415; 80053; 80061; 84443

== ENCOUNTER → 2023-02-10 | Outpatient (CLI) | payer OTHER, SELFPAY ==
--- NOTE | 2023-02-10 13:46 | ECHOD_ITS ---
Reason For Study: Palpitations Procedure This was a 2D Doppler, Color Flow transthoracic echocardiogram. Exam performed in department. Left Ventricle Normal size and thickness. The left ventricular ejection fraction is 65 %. Normal diastololic function. Right Ventricle Normal right ventricle. Atria The left and right atria are normal. Mitral Valve Trivial mitral valve insufficiency. Tricuspid Valve Trivial tricuspid valve insufficiency. Unable to estimate RV systolic pressure due to insufficient tricuspid regurgitant envelope. Aortic Valve The aortic valve is not well visualized in the short axis view. There is no aortic stenosis. No aortic valve insufficiency. Pulmonic Valve The pulmonic valve is not well visualized. Great Vessels Normal sized aortic root. Pericardium/Pleural No pericardial effusion. MMode/2D Measurements & Calculations LVIDd: 5.1 cm IVSd: 0.83 cm Ao root diam: 2.9 cm LVIDs: 3.6 cm LVPWd: 0.92 cm LA dimension: 4.1 cm RVDd: 3.8 cm FS: 29.5 % LAV(MOD-bp): 54.5 ml LVAd ap4: 37.6 cm2 SV(MOD-sp4): 74.1 ml LAV(MOD-bp) Indexed: 27.7 ml/m2 LVLd ap4: 8.2 cm LAV(MOD-sp2): 55.7 ml EDV(MOD-sp4): 140.7 ml LAV(MOD-sp4): 52.3 ml EDV(sp4-el): 145.4 ml LVAs ap4: 22.5 cm2 LVLs ap4: 6.7 cm ESV(MOD-sp4): 66.6 ml ESV(sp4-el): 64.4 ml EF(MOD-sp4): 52.7 % EF(sp4-el): 55.7 % SV(sp4-el): 81.0 ml LA A4 area: 18.1 cm2 RA A4 area: 13.8 cm2 TAPSE: 1.7 cm Time Measurements MV dec time: 0.16 sec Doppler Measurements & Calculations MV E max luis miguel: 93.0 cm/sec Lat Peak E' Luis Miguel: 17.9 cm/sec Med Peak E' Luis Miguel: 13.4 cm/sec MV A max luis miguel: 80.6 cm/sec E/E' lat: 5.2 E/E' med: 7.0 MV E/A: 1.2 MV V2 max: 112.4 cm/sec MV dec slope: 573.7 cm/sec2 Ao V2 max: 156.9 cm/sec MV max P.1 mmHg Ao max P.8 mmHg MV V2 mean: 74.1 cm/sec Ao V2 mean: 108.7 cm/sec MV mean P.4 mmHg Ao mean P.4 mmHg MV V2 VTI: 35.8 cm Ao V2 VTI: 32.0 cm AV (velocity ratio): 0.80 LV V1 max: 128.5 cm/sec PA V2 max: 132.9 cm/sec LV V1 max P.6 mmHg PA V2 mean: 93.8 cm/sec LV V1 mean P.5 mmHg LV V1 mean: 86.9 cm/sec LV V1 VTI: 25.6 cm ECHO/Echo Complete Interpretation Summary The left ventricular ejection fraction is 65 %. Ordering Physician: Mary Ann Perez Referring Physician: Mary Ann Perez Performed By: Dez Horne [facility]
== END | disposition home or self-care (01) ==
LOC: CVS 13:46
PROVIDERS: PCP Nurse Practitioner Family; Referring Provider Internal Medicine Cardiovascular Disease; Visit Provider Internal Medicine Cardiovascular Disease
DX: R00.2 Palpitations (principal); F41.9 Anxiety disorder, unspecified; F43.9 Reaction to severe stress, unspecified; R03.0 Elevated blood-pressure reading, without diagnosis of hypertension; R55 Syncope and collapse
CPT/HCPCS: 93306

== ENCOUNTER → 2023-04-15 | Outpatient (CLI) | payer OTHER, SELFPAY ==
[2023-04-15 15:42] LABS: Hematocrit 43.9 % (40-54); Hemoglobin 14.6 g/dL (13.0-16.5); Mean Corp Hgb Conc 33.3 g/dL (32-36); Mean Corpuscular Hgb 29.9 pg (27.0-32.0); Mean Platelet Vol. 10.8 fl (6.2-12.0); Platelet Count 215 K/mm3 (150-450); RBC Distribution Width CV 12.2 % (11.6-14.6); RBC Distribution Width SD 40.2 fl (35.1-43.9); Red Blood Count 4.88 M/mm3 (4.6-6.2); White Blood Count 9.2 K/mm3 (4.4-11.0)
[2023-04-15 15:55] LABS: AST(SGOT) 27 U/L (15-37); Alanine Aminotransfer ALT/SGPT 47 U/L (16-61); Anion Gap 3 (5-15); BUN 24 mg/dL (7-18); CPK Total, Creatine Kinase 179 U/L (39-308); Calcium,Total 9.2 mg/dL (8.5-10.1); Chloride 103 mmol/L (98-107); Cholesterol 318 mg/dL (200); Creatinine, Serum 1.09 mg/dL (0.70-1.30); EST Glomerular Filtration Rate 80 mL/min (>60); Est Glom Filt Rate - Afr Amer 96 mL/min (>60); Glucose 96 mg/dL (74-106); High Density Lipoprotein 59 mg/dL; Potassium 4.3 mmol/L (3.5-5.1); Sodium Level 135 mmol/L (136-145); Triglycerides 130 mg/dL; Very Low Density Lipoprotein 26 mg/dL (5-40)
== END | disposition home or self-care (01) ==
LOC: LAB 15:06
PROVIDERS: PCP Nurse Practitioner Family; Referring Provider Internal Medicine Cardiovascular Disease; Visit Provider Internal Medicine Cardiovascular Disease
DX: E78.5 Hyperlipidemia, unspecified (principal); F10.10 Alcohol abuse, uncomplicated; R00.2 Palpitations; F43.9 Reaction to severe stress, unspecified; R55 Syncope and collapse
CPT/HCPCS: 36415; 80048; 80061; 82550; 84450; 84460; 85027

== ENCOUNTER → 2023-04-21 | Outpatient (CLI) | payer OTHER, SELFPAY ==
--- NOTE | 2023-04-21 18:00 | TILTTABLE_ITS ---
Staff Staff: Naomi Barrientos and Beatrice Greer Summary Pre Test Resting HR: 75 Pre Test Resting BP: 163/87 Minimum Test HR: 63 Maximum Test HR: 75 Minimum Test BP: 132/90 Maximum Test BP: 148/89 Physician Tilt Table Report Patient's Physicians Primary Care Physician: Ivette Negron Indications/Diagnosis: Near syncope Procedure Comments: Patient was brought to the noninvasive lab in the postabsorptive nonsedated state. Informed consent was obtained. Initial EKG was obtained demonstrating a heart rate of 61 bpm blood pressure of 148/80 mmHg in sinus rhythm. The patient was then placed in the 70 degree head upright tilt position after informed consent was obtained. Continuous EKG monitoring as well as heart rate and blood pressure monitoring were obtained. Patient was in this position for 20 minutes. Patient maintained sinus rhythm with no symptom atology. Nitroglycerin was not given. Summary: Negative cardiac tilt table test with no EKG or hemodynamic changes.
[2023-04-21 18:02] VITALS: BP 132/90; BP 148/89; BP 163/87
== END | disposition home or self-care (01) ==
LOC: CVS 09:01
PROVIDERS: PCP Nurse Practitioner Family; Referring Provider Internal Medicine Cardiovascular Disease; Visit Provider Internal Medicine Cardiovascular Disease
DX: R00.2 Palpitations (principal); R03.0 Elevated blood-pressure reading, without diagnosis of hypertension
CPT/HCPCS: 93660; J7040

== ENCOUNTER → 2025-05-01 | Outpatient (CLI) | payer OTHER, SELFPAY ==
[2025-05-01 12:40] LABS: Hematocrit 46.5 % (40-54); Hemoglobin 15.9 g/dL (13.0-16.5); Mean Corp Hgb Conc 34.2 g/dL (32-36); Mean Corpuscular Volume 90.5 fL (80-94); Mean Platelet Vol. 10.8 fl (6.2-12.0); Platelet Count 209 K/mm3 (150-450); RBC Distribution Width CV 11.9 % (11.6-14.6); RBC Distribution Width SD 39.8 fl (35.1-43.9); Red Blood Count 5.14 M/mm3 (4.6-6.2); White Blood Count 6.3 K/mm3 (4.4-11.0)
[2025-05-01 13:14] LABS: AST(SGOT) 31 U/L (<=37); Alanine Aminotransfer ALT/SGPT 41 U/L (<=46); Albumin, Serum 4.9 g/dL (3.5-5.0); Alkaline Phosphatase 50 U/L (40-129); Anion Gap 10 (5-15); BUN 15 mg/dL (4-19); BUN/Creat Ratio 15.6 RATIO (10-20); Calcium,Total 10.0 mg/dL (7.6-11.0); Carbon Dioxide 27.2 mmol/L (21.0-32.0); Chloride 100 mmol/L (98-108); Cholesterol 315 mg/dL (<=200); Globulin 3.4 g/dL (2.2-4.2); Glucose 110 mg/dL (70-99); Low Density Lipoprotein Calc. 233 mg/dL; Potassium 4.1 mmol/L (3.3-5.1); Triglycerides 93 mg/dL; cholesterol:hdl ratio screen 4.69
[2025-05-01 13:15] LABS: Very Low Density Lipoprotein 19 mg/dL (5-40)
== END | disposition home or self-care (01) ==
LOC: LAB 12:04
PROVIDERS: PCP Nurse Practitioner Family; Referring Provider Nurse Practitioner Family; Visit Provider Nurse Practitioner Family
DX: Z00.00 Encounter for general adult medical examination without abnormal findings (principal)
CPT/HCPCS: 36415; 80053; 80061; 85027